=== PATIENT | female | born 1955 | race Caucasian/White ===

== ENCOUNTER 2023-11-08 19:32 | Emergency (ER) | payer MEDICARE, SELFPAY ==
[2023-11-08 19:34] VITALS: BP 128/65; PULSE 86; RESP 16; TEMP 36.8; O2SAT 95; BMI 26.2
--- NOTE | 2023-11-08 19:39 | XR_ITS ---
PROCEDURE INFORMATION: Exam: XR Right Hand Exam date and time: 11/08/2023 7:48 PM Age: 68 years old Clinical indication: Injury or trauma; Other: Gardening injury; Laceration; Hand; Right TECHNIQUE: Imaging protocol: Radiologic exam of the right hand. Views: 3 or more views. COMPARISON: No relevant prior studies available. FINDINGS: Bones/joints: No acute fracture. Soft tissues: No radiopaque foreign bodies are identified. IMPRESSION: No evidence for acute fracture.
[2023-11-08 19:45] VITALS: BP 128/65; PULSE 86; RESP 16; TEMP 36.8; O2SAT 95
--- NOTE | 2023-11-08 19:47 | ED_ITS ---
<Statement entered by Linda Sher DO - 11/08/23 22:06> I was consulted by the HARRIET, and we discussed the complexity of the problems being addressed. I approved the treatment and management plan for this patient's care in the emergency department, thus performing a substantive portion of the medical decision making. Linda Sher DO Discharge Plan Disposition Patient Disposition: Home, Self-Care Condition: Good Prescriptions Prescriptions: New cephalexin 500 mg capsule 500 mg PO BID 7 Days Qty: 14 0RF No Action venlafaxine 225 mg tablet extended release 24hr 225 mg PO DAILY atorvastatin 20 mg tablet 20 mg PO HS omeprazole 40 mg capsule,delayed release(DR/EC) 40 mg PO DAILY losartan 25 mg tablet 25 mg PO DAILY levothyroxine 100 mcg tablet 100 mcg PO DAILY Saxenda 3 mg/0.5 mL (18 mg/3 mL) pen injector 3 mg SQ DAILY metformin 500 mg tablet 500 mg PO BID ergocalciferol (vitamin D2) 1,250 mcg (50,000 unit) capsule 1,250 mcg PO WEEKLY montelukast 10 mg tablet 10 mg PO HS fluticasone propionate 50 mcg/actuation spray,suspension 2 spray INTRANASAL DAILY Rx Instructions: administer into each nostril cetirizine [All Day Allergy (cetirizine)] 10 mg tablet 10 mg PO DAILY multivitamin [Daily Multi-Vitamin] Tablet 1 tab PO DAILY Referrals Follow up/Referrals: Godfrey Oconnor MD [Primary Care Provider] - See instructions Activity Restrictions/Add. Instructions Additional Instructions/Restrictions: Please keep wound clean dry and covered. May wash with soap and water and pat dry. Sutures need to come out in 2 weeks. Return to ER for any worsening signs or symptoms including redness drainage pain swelling etc. Clinical Impressions Clinical Impression: Laceration Instructions Patient Instructions: DI for Laceration Repair Discharge ED Provider: Linda Sher General Adult HPI General Chief complaint: Wound/Laceration Stated complaint: AO06/25 RT hand lac Time Seen by Provider: 11/08/23 19:35 Mode of Arrival: Ambulatory Source of Information: Patient Limitations: No Limitations Description of Symptoms (Recalled from ER Triage Doc. by RN): Pt was using an auger on the end of a drill and it slipped and went into her R hand between her ring and middle finger. Open lac is visible. Pt rates her pain 4/10. Pt is A&O*4 at this time and family is bedside. History of Present Illness HPI narrative: Patient presents for evaluation of an auger injury. She was utilizing a drill based auger to plant bulbs and accidentally stabbed her right, dominant, hand between the third and fourth fingers in the interdigital space. Patient miraculously has no bony injury has full sensation and motor in all flexion extension is intact. Related Data Home Medications Medication Instructions Recorded Confirmed atorvastatin 20 mg tablet 20 mg PO HS 02/28/20 02/28/20 cetirizine 10 mg tablet (All Day 10 mg PO DAILY 02/28/20 02/28/20 Allergy (cetirizine)) ergocalciferol (vitamin D2) 1,250 1,250 mcg PO WEEKLY 02/28/20 02/28/20 mcg (50,000 unit) capsule fluticasone propionate 50 2 spray intranasal DAILY 02/28/20 02/28/20 mcg/actuation nasal spray,suspension levothyroxine 100 mcg tablet 100 mcg PO DAILY 02/28/20 02/28/20 liraglutide (weight loss) 3 mg/0.5 3 mg SQ DAILY 02/28/20 02/28/20 mL (18 mg/3 mL) subcut pen injector (Saxenda) losartan 25 mg tablet 25 mg PO DAILY 02/28/20 02/28/20 metformin 500 mg tablet 500 mg PO BID 02/28/20 02/28/20 montelukast 10 mg tablet 10 mg PO HS 02/28/20 02/28/20 multivitamin (Daily Multi-Vitamin 1 tab PO DAILY 02/28/20 02/28/20 tablet) omeprazole 40 mg capsule,delayed 40 mg PO DAILY 02/28/20 02/28/20 release venlafaxine 225 mg tablet,extended 225 mg PO DAILY 02/28/20 02/28/20 release 24 hr Previous Rx's Medication Instructions Recorded cephalexin 500 mg capsule 500 mg PO BID 7 days #14 caps 11/08/23 Allergies Allergy/AdvReac Type Severity Reaction Status Date / Time No Known Allergies Allergy Verified 02/28/20 11:19 [facility] Disclaimer: The information contained in this section may have been updated after the patient was seen, as this information can be updated by other users. Social History (Updated 11/08/23 @ 21:49 by VASQUEZ Lorenzo) Smoking Status: Unknown if ever smoked alcohol intake: former current occupational status: retired Travel in the last 8 weeks: None ROS Obtained: Yes Systems reviewed as appropriate & no additional complaints except as documented Physical Exam General General appearance: alert and in no apparent distress Respiratory Respiratory exam: Present normal lung sounds bilaterally Cardiovascular Cardiovascular exam: Present regular rate and normal rhythm Neurological Exam Neurological exam: Present alert and oriented X3 Other Other exam information: Patient has a puncture/wound at the interdigital space between the third and fourth digits. She has full range of motion and actually only appears to be superficial Medical Decision Making [place] Inquiry Pt receiving controlled substance: No Vital Signs: 11/08/23 19:34 11/08/23 19:45 11/08/23 20:15 Temperature 98.3 F 98.3 F Temperature Source Oral Oral Pulse Rate 86 78 Pulse Rate [Left] 86 Respiratory Rate 16 16 Blood Pressure 128/65 122/61 Blood Pressure [Left Arm] 128/65 Blood Pressure Mean Blood Pressure Mean [Left Arm] 86 02 Sat by Pulse Oximetry 95 95 95 Oxygen Delivery Method Room Air Room Air 11/08/23 20:30 11/08/23 21:00 Temperature 98.3 F Temperature Source Oral Pulse Rate 74 71 Pulse Rate [Left] Respiratory Rate 16 Blood Pressure 117/70 118/78 Blood Pressure [Left Arm] Blood Pressure Mean 80 Blood Pressure Mean [Left Arm] 02 Sat by Pulse Oximetry 95 Oxygen Delivery Method Room Air Orders (Tests/Meds): ED MEDICATIONS Discontinued Medications Generic Name Dose Route Start Last Admin Trade Name Freq PRN Reason Stop Dose Admin Acetaminophen 1,000 mg 11/08/23 19:41 11/08/23 19:48 Acetaminophen 500mg Tab PO 11/08/23 19:42 1,000 mg ONCE ONE Administration Cephalexin HCl 500 mg 11/08/23 19:40 11/08/23 19:48 Cephalexin 500mg Capsule PO 11/08/23 19:41 500 mg ONCE ONE Administration Ibuprofen 800 mg 11/08/23 19:41 11/08/23 19:48 Ibuprofen 400 Mg Tablet PO 11/08/23 19:42 800 mg ONCE ONE Administration Lidocaine HCl 10 ml 11/08/23 19:40 11/08/23 19:48 Lidocaine 1% 10ml Mdv SQ 11/08/23 19:41 10 ml ONCE ONE Administration Tetanus/Reduced Diphtheria/Acell Pertussis 0.5 ml 11/08/23 19:40 11/08/23 19:48 Tet/Diphth/Pert-Adult 0.5ml Syringe IM 11/08/23 19:41 0.5 ml .ONCE ONE Administration ORDERS Category Date Time Status Hand XR right minimum 3 views [XR hand RT min 3V] Stat Exams 11/08/23 19:39 Completed Medical Decision Narrative: In summary patient is a 68-year-old for who presents to the emergency department for evaluation of laceration to right hand. Patient is hemodynamically stable upon arrival, afebrile. Physical exam is remarkable for a auger injury in the interdigital space of the third and fourth digits of her right, dominant, hand. Differential diagnosis includes superficial versus deep injury. Initial workup will be conducted with plain film x-rays. Initial interventions include acetaminophen Motrin. Initial workup reviewed by me shows no bony injury. Upon repeat evaluation adequately anesthetized the patient and explored her wound and she has no deep space injury including no tendon injury no bony injury no nerve injury and she is neurovascularly intact in both fingers distally.. Given this wound was repaired primarily with 8 sutures of 4-0 nylon. Patient given first dose of Keflex and prescription sent to her pharmacy. Procedures Laceration Laceration 1: Site: hand Side (If applicable): right Size (cm): 4 Description: stellate Depth: simple, single layer Local Anesthetic: lidocaine 1% Amount of anesthesia used (mL): 10 Pre-repair: wound explored, irrigated extensively and deep structures intact Skin layer closed with: nylon Size (cm): 4-0 Number of sutures: 8 Technique: simple, interrupted Critical Care Critical Care Time Critical Care Time: No
[2023-11-08] MEDS: TET/DIPHTH/PERT-ADULT 0.5ML SYRINGE 0.5 ML IM (19:48)
[2023-11-08] MEDS: cephALEXin 500MG CAPSULE 500 MG PO (19:48)
[2023-11-08] MEDS: LIDOCAINE 1% 10ML MDV 10 ML SQ (19:48)
[2023-11-08] MEDS: ACETAMINOPHEN 500MG TAB 1000 MG PO (19:48)
[2023-11-08] MEDS: IBUPROFEN 400 MG TABLET 800 MG PO (19:48)
[2023-11-08 20:15] VITALS: BP 122/61; PULSE 78; O2SAT 95
[2023-11-08 20:30] VITALS: BP 117/70; PULSE 74; O2SAT 95
[2023-11-08 21:00] VITALS: BP 118/78; PULSE 71; RESP 16; TEMP 36.8; O2SAT 95
== END 2023-11-08 21:03 | disposition home or self-care (01) ==
PROVIDERS: Emergency Provider Emergency Medicine; PCP Family Medicine
DX: S61.411A Laceration without foreign body of right hand, initial encounter (principal); W31.89XA Contact with other specified machinery, initial encounter; Z23 Encounter for immunization
CPT/HCPCS: 12002; 73130; 90471; 90715; 99283